=== PATIENT | female | born 1970 | race Caucasian/White ===

== ENCOUNTER 2022-03-22 16:15 | Emergency (ER) | payer OTHER ==
[~2022-03-22] VITALS: Ht 161.3 cm; Wt 95.5 kg
[2022-03-22 16:17] VITALS: BP 148/105
[2022-03-22] MEDS ORDERED: dexamethasone sod phosphate 10mg/ml inj IM STA (17:10)
[2022-03-22] MEDS ORDERED: ketorolac trometh inj. 60 MG/2 ML VIAL IM ONE (17:10)
[2022-03-22] MEDS ORDERED: orphenadrine citrate 60mg/2ml inj. IM ONE (17:10)
[2022-03-22] MEDS ORDERED: NAPR-56 PO (17:19)
[2022-03-22] MEDS ORDERED: ORPH100T2 PO (17:19)
--- NOTE | 2022-03-22 17:35 | NUR ---
IM [id number] GIVEN
== END 2022-03-22 18:35 | disposition home or self-care (01) ==
LOC: ER 16:16
DX: S39.012A Strain of muscle, fascia and tendon of lower back, initial encounter (principal); M54.31 Sciatica, right side; I10 Essential (primary) hypertension; G89.29 Other chronic pain; Z88.2 Allergy status to sulfonamides; Z88.5 Allergy status to narcotic agent; X58.XXXA Exposure to other specified factors, initial encounter; Y93.89 Activity, other specified; Y92.89 Other specified places as the place of occurrence of the external cause; Y99.8 Other external cause status
CPT/HCPCS: 96372; 99284; J1100; J1885; J2360